=== PATIENT | female | born 1965 | race Caucasian/White ===

== ENCOUNTER 2020-09-01 08:35 | Day surgery (SDC) | payer BC ==
[~2020-09-01] VITALS: Ht 165.1 cm; Wt 83.6 kg
[~2020-09-01 08:35] MED LIST: ESTRADIOL1 MG PO; HYDACE5 PO; LEVSOD75 PO; MELO7.5 PO; VITAMINS
[2020-09-01] MEDS ORDERED: CETI5 PO (09:25)
--- NOTE | 2020-09-01 10:19 | NUR ---
09/01/20 1019 [place] Julien BUPIVACAINE 0.5% 30 MLS MIXED WITH 0.15 ML EPI TO MAKE BUPIVACAINE 0.5% 1:200,[address] DOWELL.
== END 2020-09-01 11:53 | disposition home or self-care (01) ==
LOC: ORSCSDS 08:35
PROVIDERS: Podiatrist Foot & Ankle Surgery
PROC: 0SGN04Z Fusion of Left Metatarsal-Phalangeal Joint with Internal Fixation Device, Open Approach (ICD-10-PCS; principal; 2020-09-01 10:15)
DX: M20.22 Hallux rigidus, left foot (principal); M20.5X9 Other deformities of toe(s) (acquired), unspecified foot; E03.9 Hypothyroidism, unspecified; Z79.899 Other long term (current) drug therapy
CPT/HCPCS: C1713; C1769; J0171; J0690; J1100; J2250; J2405; J2704; J3010; J7120